=== PATIENT | male | born 1950 | race Asian ===

== ENCOUNTER 2019-04-09 19:52 | Inpatient (IN) | payer MEDICARE, OTHER ==
[2019-04-09 20:13] LABS: ABNORMAL IP MESSAGE 1; HEMOGLOBIN 12.3 g/dl (14.0-18.0); MEAN CORPUSCULAR HEMOGLOBIN 25.5 pg (29.0-33.0); MEAN CORPUSCULAR HGB CONC 33.2 g/dl (32.0-37.0); MEAN CORPUSCULAR VOLUME 76.6 fl (82.0-101.0); PLATELET COUNT 100 10^3/UL (140-415); POSITIVE DIFF @See below; RED BLOOD COUNT 4.83 10^6/ul (4.70-6.10); RED CELL DISTRIBUTION WIDTH 14.6 % (11.5-14.5)
[2019-04-09] MEDS: ONDANSETRON 4 MG INJ IV (20:15)
[2019-04-09] MEDS: morphine 4 MG/ML VIAL IV (20:15)
[2019-04-09] MEDS: SOD CHLORIDE 0.9% 1,000 ML IV (20:15)
[2019-04-09 20:17] LABS: ADD MAN DIFF? YES
[2019-04-09] MEDS: CEFEPIME 2GM/50 ML (PMX) 50 ML IVPB ×2 (20:22→21:38)
[2019-04-09 20:33] LABS: INR 1.05; PROTIME 13.8 Sec (11.9-14.9); PT RATIO 1.1
[2019-04-09 20:34] LABS: PARTIAL THROMBOPLASTIN TIME 32.9 Sec (23.0-35.0)
[2019-04-09 21:09] LABS: ACANTHOCYTES 1+ (0-0); ANISOCYTOSIS 2+ (0-0); BAND NEUTROPHILS #M 6.5 10^3/ul (0.0-0.6); BAND NEUTROPHILS % (M) 26 % (0-4); BURR CELLS 1+ (0-0); LYMPHOCYTES #M 2.2 10^3/ul (0.8-2.9); LYMPHOCYTES % (M) 9 % (15-51); MONOCYTES % (M) 4 % (0-11); PLATELET ESTIMATE DECREASED; POIKILOCYTOSIS 3+ (0-0); POLYCHROMASIA 1+ (0-0); SEG NEUT #M 16.9 10^3/ul (1.6-7.5); SEGMENTED NEUTROPHILS (M) % 61 % (39-77); SMUDGE%M 7 % (0-0)
[2019-04-09] MEDS: VANCOMYCIN 1 GM (PMX) 250 ML IVPB ×2 (21:17→21:38)
[2019-04-09] MEDS: SODIUM CHLORIDE 0.9% 1L BAG IV* (21:38)
[2019-04-09 21:59] LABS: INR 1.07; PT RATIO 1.1
[2019-04-09 22:00] LABS: PARTIAL THROMBOPLASTIN TIME 33.1 Sec (23.0-35.0)
[2019-04-09] MEDS ORDERED: ONDANSETRON 4 MG INJ IV (22:30)
[2019-04-09] MEDS ORDERED: ALBUTEROL/IPRATROPIUM (NEB) 3 ML AMP NEB (22:30)
[2019-04-09] MEDS ORDERED: ACETAMINOPHEN 650MG/20.3ML CUP PO (22:30)
[2019-04-09 22:45] LABS: HEMOGLOBIN A1C 5.3 % (0-5.9)
[2019-04-09 23:48] LABS: ALANINE AMINOTRANSFERASE 45 IU/L (13-69); ALBUMIN 2.2 g/dl (3.3-4.9); ALBUMIN/GLOBULIN RATIO 0.73; ALKALINE PHOSPHATASE 47 IU/L (42-121); AMYLASE 89 U/L (11-123); ANION GAP 14 (5-13); ASPARTATE AMINO TRANSFERASE 50 IU/L (15-46); BILIRUBIN,INDIRECT 0.3 mg/dl (0-1.1); BILIRUBIN,TOTAL 0.3 mg/dl (0.2-1.3); BLOOD UREA NITROGEN 84 mg/dl (7-20); CALCIUM 8.5 mg/dl (8.4-10.2); CARBON DIOXIDE 22 mmol/L (21-31); CHLORIDE 90 mmol/L (97-110); GLUCOSE 108 mg/dl (70-220); LIPASE 22 U/L (23-300); POTASSIUM 4.9 mmol/L (3.5-5.1); SODIUM 126 mmol/L (135-144); TOTAL PROTEIN 5.2 g/dl (6.1-8.1)
[2019-04-09 23:51] LABS: LACTIC ACID 3.3 mmol/L (0.5-2.0)
[2019-04-09 23:54] LABS: Estimated GFR 9 mL/min (>60)
[2019-04-09 23:57] LABS: CREATININE 6.33 mg/dl (0.61-1.24)
[2019-04-09] MEDS: NORepinephrine 8MG/250 ML (PMX 250 ML IV (23:57)
[2019-04-09 23:59] LABS: TROPONIN-I < 0.012 ng/ml (0.000-0.120)
[2019-04-10] MEDS: ALBUMIN HUMAN 25% 100 ML IV (03:08)
[2019-04-10 05:55] LABS: ABNORMAL IP MESSAGE 1; HEMATOCRIT 38.6 % (42.0-52.0); HEMOGLOBIN 12.8 g/dl (14.0-18.0); MEAN CORPUSCULAR HEMOGLOBIN 25.5 pg (29.0-33.0); MEAN CORPUSCULAR HGB CONC 33.2 g/dl (32.0-37.0); PLATELET COUNT 165 10^3/UL (140-415); POSITIVE DIFF @See below; RED BLOOD COUNT 5.01 10^6/ul (4.70-6.10); RED CELL DISTRIBUTION WIDTH 14.6 % (11.5-14.5)
[2019-04-10 05:55] LABS: WHITE BLOOD COUNT 47.8 10^3/ul (4.8-10.8)
[2019-04-10] MEDS ORDERED: PIPER-TAZO 3.375 GM IV (PMX) 100 ML IVPB (06:00)
[2019-04-10] MEDS: PANTOPRAZOLE 40 MG INJ IV (06:09)
[2019-04-10 06:10] LABS: ADD MAN DIFF? YES
[2019-04-10 06:25] LABS: LACTIC ACID 2.8 mmol/L (0.5-2.0)
[2019-04-10 06:27] LABS: ANION GAP 18 (5-13)
[2019-04-10 06:32] LABS: CARBON DIOXIDE 20 mmol/L (21-31); CHLORIDE 89 mmol/L (97-110); SODIUM 127 mmol/L (135-144)
[2019-04-10 06:33] LABS: BLOOD UREA NITROGEN 88 mg/dl (7-20); CALCIUM 8.8 mg/dl (8.4-10.2); GLUCOSE 120 mg/dl (70-220)
[2019-04-10 06:35] LABS: CREATININE 6.84 mg/dl (0.61-1.24); Estimated GFR 8 mL/min (>60)
[2019-04-10 07:38] LABS: ACANTHOCYTES 1+ (0-0); ANISOCYTOSIS 2+ (0-0); BAND NEUTROPHILS #M 13.8 10^3/ul (0.0-0.6); BAND NEUTROPHILS % (M) 29 % (0-4); BURR CELLS 3+ (0-0); GIANT THROMBO% (M) 1 % (0-0); LYMPHOCYTES #M 1.9 10^3/ul (0.8-2.9); LYMPHOCYTES % (M) 4 % (15-51); MONOCYTE #M 1.4 10^3/ul (0.3-0.9); MONOCYTES % (M) 3 % (0-11); OVALOCYTES 1+ (0-0); PLATELET ESTIMATE NORMAL; POIKILOCYTOSIS 3+ (0-0); POLYCHROMASIA 2+ (0-0); SEG NEUT #M 37.2 10^3/ul (1.6-7.5); SEGMENTED NEUTROPHILS (M) % 64 % (39-77); SMUDGE%M 6 % (0-0)
[2019-04-10] MEDS: PIPER-TAZO 2.25 GM/NS 50 ML IVPB (08:58)
[2019-04-10] MEDS: NORepinephrine 8MG/250 ML (PMX 250 ML IV ×2 (11:49→21:07)
[2019-04-10] MEDS: HYDROCODONE/APAP (5/325) TAB PO ×3 (11:49→22:54)
[2019-04-10] MEDS: VANCOMYCIN HCL 250 MG/5ML POSYG PO ×3 (14:51→23:00)
[2019-04-10] MEDS ORDERED: SODIUM CHLORIDE 0.9% 1L BAG IV* (20:00)
[2019-04-10] MEDS: morphine 2 MG INJ IV (21:01)
[2019-04-10 21:15] LABS: WHITE BLOOD COUNT 54.2 10^3/ul (4.8-10.8)
[2019-04-10 21:15] LABS: ABNORMAL IP MESSAGE 1; HEMATOCRIT 43.3 % (42.0-52.0); HEMOGLOBIN 14.3 g/dl (14.0-18.0); MEAN CORPUSCULAR HEMOGLOBIN 25.4 pg (29.0-33.0); MEAN CORPUSCULAR VOLUME 76.8 fl (82.0-101.0); NUCLEATED RED BLOOD CELLS% 0.1 /100WBC (0.0-0.0); PLATELET COUNT 139 10^3/UL (140-415); POSITIVE DIFF @See below; RED BLOOD COUNT 5.64 10^6/ul (4.70-6.10); RED CELL DISTRIBUTION WIDTH 14.8 % (11.5-14.5)
[2019-04-10 21:19] LABS: ADD MAN DIFF? YES
[2019-04-10] MEDS: SODIUM BICARBONATE IV (21:38)
[2019-04-10] MEDS: NACL IV (21:38)
[2019-04-10] MEDS: DEXTROSE IV (21:38)
[2019-04-10 22:09] LABS: HEPATITIS B SURFACE ANTIGEN NEGATIVE (NEGATIVE)
[2019-04-10 22:28] LABS: ANISOCYTOSIS 2+ (0-0); BAND NEUTROPHILS % (M) 13 % (0-4); BURR CELLS 1+ (0-0); LYMPHOCYTES #M 4.8 10^3/ul (0.8-2.9); LYMPHOCYTES % (M) 9 % (15-51); MONOCYTE #M 2.1 10^3/ul (0.3-0.9); MONOCYTES % (M) 4 % (0-11); MYELOCYTES #M 0.5 10^3/ul (0.0-0.0); MYELOCYTES % (M) 1 % (0-0); OVALOCYTES 1+ (0-0); PLATELET ESTIMATE NORMAL; POIKILOCYTOSIS 2+ (0-0); POLYCHROMASIA 1+ (0-0); REACTIVE LYMPHOCYTES% (M) 2 % (0-0); SEG NEUT #M 41.7 10^3/ul (1.6-7.5); SEGMENTED NEUTROPHILS (M) % 70 % (39-77); SMUDGE%M 44 % (0-0)
[2019-04-11] MEDS: morphine 2 MG INJ IV ×2 (00:58→04:53)
[2019-04-11] MEDS: NORepinephrine 8MG/250 ML (PMX 250 ML IV (04:15)
[2019-04-11] MEDS ORDERED: NORepinephrine 32 MG in DEXTROSE 5% 218 ML IV ×2 (04:30→17:00)
[2019-04-11] MEDS ORDERED: PHENYLephrine 80 MG in DEXTROSE 5% 242 ML IV (04:30)
[2019-04-11] MEDS ORDERED: PHENYLephrine 20MG IN 250 ML 250 ML IV (05:00)
[2019-04-11] MEDS: NORepinephrine 32 MG in DEXTROSE 5% 218 ML IV ×2 (05:20→07:46)
[2019-04-11] MEDS: PHENYLephrine 80 MG in DEXTROSE 5% 242 ML IV ×4 (05:25→20:16)
[2019-04-11] MEDS: DEXTROSE IV (06:12)
[2019-04-11] MEDS: NACL IV (06:12)
[2019-04-11] MEDS: SODIUM BICARBONATE IV (06:12)
[2019-04-11] MEDS: PANTOPRAZOLE 40 MG INJ IV (06:16)
[2019-04-11] MEDS: VANCOMYCIN HCL 250 MG/5ML POSYG PO ×3 (06:17→17:21)
[2019-04-11 06:28] LABS: ALANINE AMINOTRANSFERASE 123 IU/L (13-69); ALBUMIN 2.5 g/dl (3.3-4.9); ALBUMIN/GLOBULIN RATIO 0.86; ALKALINE PHOSPHATASE 89 IU/L (42-121); ANION GAP 28 (5-13); ASPARTATE AMINO TRANSFERASE 419 IU/L (15-46); BILIRUBIN,INDIRECT 0.3 mg/dl (0-1.1); BILIRUBIN,TOTAL 0.3 mg/dl (0.2-1.3); BLOOD UREA NITROGEN 108 mg/dl (7-20); CALCIUM 7.1 mg/dl (8.4-10.2); CHLORIDE 94 mmol/L (97-110); GLUCOSE 132 mg/dl (70-220); SODIUM 131 mmol/L (135-144); TOTAL PROTEIN 5.4 g/dl (6.1-8.1)
[2019-04-11 06:34] LABS: Estimated GFR 7 mL/min (>60)
[2019-04-11 06:36] LABS: CARBON DIOXIDE 9 mmol/L (21-31); CREATININE 7.58 mg/dl (0.61-1.24); POTASSIUM 6.5 mmol/L (3.5-5.1)
[2019-04-11] MEDS: PROPOFOL 100 ML IV ×2 (07:30→19:30)
[2019-04-11] MEDS: VASOPRESSIN 60 UNIT in DEXTROSE 5% 57 ML IV ×2 (08:00→22:36)
[2019-04-11] MEDS ORDERED: ALBUTEROL 0.083% (NEB) 2.5 MG/3 ML AMP (08:20)
[2019-04-11] MEDS ORDERED: DEXTROSE 50% 50 ML SYRINGE IV ×4 (08:30→22:30)
[2019-04-11] MEDS: INSULIN REGULAR, HUMAN 100 UNIT/1 ML 3ML VIAL IVP ×3 (08:30→22:31)
[2019-04-11] MEDS: DEXTROSE 50% 50 ML SYRINGE IV (08:30)
[2019-04-11] MEDS ORDERED: ALBUMIN HUMAN 25% 100 ML (08:52)
[2019-04-11] MEDS: EPINEPHrine 4 MG in DEXTROSE 5% 246 ML IV ×2 (08:58→15:15)
[2019-04-11] MEDS: ALBUMIN HUMAN 25% 100 ML IV ×2 (09:50→10:30)
[2019-04-11 11:57] LABS: FREE T4 (FREE THYROXINE) 0.73 ng/dl (0.78-2.44)
[2019-04-11 13:13] LABS: AADO2 Arterial 603.3 mmHg (7.0-24.0); Arterial Base Excess -23.6 mmol/L (-3.0-3); Arterial Blood Gas Oxygen Sat 83.6 mmHG (95.0-98.0); Arterial COHb 0.6 % (0.0-3.0); Arterial Fraction of Oxyhgb 82.8 % (93.0-99.0); Arterial HCO3 8.4 mmol/L (22.0-26.0); Arterial MetHb 0.3 % (0.0-1.5); Arterial pCO2 41.7 mmhg (35-45); MODE VENT - AC; Site Right Brachial
[2019-04-11] MEDS: NA BICARBONATE 8.4% 50 ML SYG IV ×6 (13:35→22:38)
[2019-04-11] MEDS ORDERED: NACL IV (14:45)
[2019-04-11] MEDS ORDERED: DEXTROSE IV (14:45)
[2019-04-11] MEDS ORDERED: SODIUM BICARBONATE IV (14:45)
[2019-04-11] MEDS ORDERED: SODIUM BICARBONATE (IV ADD) 150 MEQ in DEXTROSE 5%-0.45% NACL 850 ML IV (15:00)
[2019-04-11] MEDS: SODIUM BICARBONATE (IV ADD) 150 MEQ in DEXTROSE 5%-0.45% NACL 850 ML IV (16:18)
[2019-04-11] MEDS ORDERED: metroNIDAZOLE (5 MG/ML) IV SYG IV* (16:30)
[2019-04-11] MEDS ORDERED: VANCOMYCIN IV PER PHARMACY XX (16:30)
[2019-04-11] MEDS: HYDROCORTISONE 100 MG INJ IV ×2 (16:55→22:43)
[2019-04-11] MEDS: LEVOTHYROXINE 100 MCG VIAL IV (16:56)
[2019-04-11] MEDS ORDERED: EPINEPHrine 4 MG in DEXTROSE 5% 246 ML IV (17:00)
[2019-04-11] MEDS ORDERED: EPOETIN 10000 UNITS/1 ML INJ (ESRD) SC (17:00)
[2019-04-11] MEDS: metroNIDAZOLE 500 MG/NS (PMX) 100 ML IVPB (17:03)
[2019-04-11] MEDS: VANCOMYCIN 1 GM 250 ML IVPB (17:20)
[2019-04-11 17:55] LABS: AADO2 Arterial 610.4 mmHg (7.0-24.0); Arterial Base Excess -24.6 mmol/L (-3.0-3); Arterial Blood Gas Oxygen Sat 75.5 mmHG (95.0-98.0); Arterial COHb 0.9 % (0.0-3.0); Arterial Fraction of Oxyhgb 74.5 % (93.0-99.0); Arterial HCO3 8.2 mmol/L (22.0-26.0); Arterial MetHb 0.4 % (0.0-1.5); Arterial pCO2 44.9 mmhg (35-45); MODE VENT - AC; Site Right Brachial
[2019-04-11] MEDS ORDERED: CA CHLORIDE 10% 10 ML SYRINGE IV (19:00)
[2019-04-11] MEDS: CA CHLORIDE 10% 10 ML SYRINGE IV ×4 (19:18→21:30)
[2019-04-11] MEDS: MEROPENEM 1 GM/50ML(PMX) 50 ML IVPB (20:33)
[2019-04-11 21:57] LABS: CALCIUM 9.2 mg/dl (8.4-10.2)
[2019-04-11 22:01] LABS: POTASSIUM 7.4 mmol/L (3.5-5.1)
[2019-04-11] MEDS: ALBUTEROL 0.083% (NEB) 2.5 MG/3 ML AMP HHN (22:23)
[2019-04-11] MEDS: NA POLYST SULFON 15 GM/60 ML BTL PO (22:39)
[2019-04-11] MEDS: CALCIUM GLUCONATE 10% 1 GM in DEXTROSE 5% 100 ML IVPB (22:39)
[2019-04-11 23:22] LABS: AADO2 Arterial 621.2 mmHg (7.0-24.0); Arterial Base Excess -21.8 mmol/L (-3.0-3); Arterial Blood Gas Oxygen Sat 49.2 mmHG (95.0-98.0); Arterial COHb 0.5 % (0.0-3.0); Arterial Fraction of Oxyhgb 48.8 % (93.0-99.0); Arterial HCO3 10.4 mmol/L (22.0-26.0); Arterial MetHb 0.3 % (0.0-1.5); MODE VENT - AC; Site Right Brachial
== END 2019-04-11 23:59 | disposition expired | DRG 871 ==
LOC: ICU 22:23 → E/R 19:52
PROVIDERS: Internal Medicine
PROC: 06HM33Z Insertion of Infusion Device into Right Femoral Vein, Percutaneous Approach (ICD-10-PCS; principal; 2019-04-09)
PROC: 0BH17EZ Insertion of Endotracheal Airway into Trachea, Via Natural or Artificial Opening (ICD-10-PCS; 2019-04-11)
PROC: 5A1935Z Respiratory Ventilation, Less than 24 Consecutive Hours (ICD-10-PCS; 2019-04-11)
PROC: 5A12012 Performance of Cardiac Output, Single, Manual (ICD-10-PCS; 2019-04-11)
PROC: 4A133R1 Monitoring of Arterial Saturation, Peripheral, Percutaneous Approach (ICD-10-PCS; 2019-04-11)
PROC: 5A1D70Z Performance of Urinary Filtration, Intermittent, Less than 6 Hours Per Day (ICD-10-PCS; 2019-04-11)
DX: A41.9 Sepsis, unspecified organism (principal); R65.21 Severe sepsis with septic shock; N18.6 End stage renal disease; J96.00 Acute respiratory failure, unspecified whether with hypoxia or hypercapnia; C22.0 Liver cell carcinoma; A04.72 Enterocolitis due to Clostridium difficile, not specified as recurrent; E87.1 Hypo-osmolality and hyponatremia; I13.11 Hypertensive heart and chronic kidney disease without heart failure, with stage 5 chronic kidney disease, or end stage renal disease; E87.2 Acidosis; K74.60 Unspecified cirrhosis of liver; I46.9 Cardiac arrest, cause unspecified; E86.0 Dehydration; E86.1 Hypovolemia; E11.22 Type 2 diabetes mellitus with diabetic chronic kidney disease; G47.33 Obstructive sleep apnea (adult) (pediatric); D63.8 Anemia in other chronic diseases classified elsewhere; E87.5 Hyperkalemia; E03.9 Hypothyroidism, unspecified; Z87.891 Personal history of nicotine dependence; Z92.21 Personal history of antineoplastic chemotherapy
CPT/HCPCS: 31500; 36415; 36600; 71045; 74176; 76942; 80048; 80053; 82150; 82310; 82803; 82962; 83036; 83605; 83690; 84132; 84439; 84443; 84484; 85025; 85610; 85730; 87040-91; 87045; 87075; 87081; 87340; 90935; 92950; 93005; 94002; 94640; 94660; 94664; 94770; 96374; 96375; 99285-25